=== PATIENT | female | born 1990 | race Caucasian/White ===

== ENCOUNTER 2020-08-15 01:48 | Emergency (ER) | payer MEDICAID ==
[~2020-08-15] VITALS: Ht 165.1 cm; Wt 75.9 kg
--- NOTE | 2020-08-15 02:00 | NUR ---
at bedside to do mse.
--- NOTE | 2020-08-15 02:10 | NUR ---
pt. arrived from home w/ step son. complaint of headache 09/26 starting yesterday AM. Pt 3 weeks post and is breast feeding so did not want to take any otc medications for head pain. Pt. a&ox4. Pt. denies dizziness, vision changes, and has steady gait. Vss.
[2020-08-15] MEDS ORDERED: IV NORMAL SALINE 1000 ML BAG IV ONE (02:15)
[2020-08-15] MEDS ORDERED: METOCLOPRAMIDE HCL 10 MG/2 ML VIAL IV ONE (02:15)
[2020-08-15] MEDS ORDERED: ACETAMINOPHEN 325 MG TABLET PO ONE (02:15)
[2020-08-15 02:24] LABS: *BILIRUBIN,URIN NEGATIVE (NEGATIVE); *CLARITY,URINE CLEAR (CLEAR); *COLOR,URINE YELLOW (YELLOW); *KETONES,URINE NEGATIVE (NEGATIVE); *UROBILINOGEN,URINE 0.2 E.U./dl (NORMAL); LEUKOCYTE ESTERASE ,URINE TRACE (NEGATIVE); NITRITE, URINE NEGATIVE (NEGATIVE); PH,URINE 6.5 (5.0-8.0); UGLUCOSE NEGATIVE (NEGATIVE)
[2020-08-15 02:26] LABS: CREATININE 0.8 mg/dL (0.6-1.3); POTASSIUM 4.1 mmol/L (3.5-5.1)
[2020-08-15] MEDS ORDERED: ACETAMINOPHEN 325 MG TABLET ONE (02:28)
[2020-08-15] MEDS ORDERED: METOCLOPRAMIDE HCL 10 MG/2 ML VIAL ONE (02:28)
[2020-08-15 02:31] LABS: BILIRUBIN,TOTAL 0.1 mg/dL (0.2-1.0)
[2020-08-15 02:34] LABS: *BLOOD, URINE TRACE (NEGATIVE)
[2020-08-15 02:35] LABS: BASOPHILS % (AUTO) 0.8 % (0.0-2.0); EOSINOPHILS # (AUTO) 0.2 K/uL (0.0-0.7); EOSINOPHILS % (AUTO) 2.5 % (0.0-7.0); HEMATOCRIT 37.6 % (31.2-41.9); HEMOGLOBIN 12.3 g/dL (10.9-14.3); LYMPHOCYTES # (AUTO) 1.5 K/uL (20.0-40.0); LYMPHOCYTES % (AUTO) 24.3 % (20.5-51.5); MEAN CORPUSCULAR HGB CONC 33 g/dL (32.3-35.6); MEAN CORPUSCULAR VOLUME 88.8 fL (75.5-95.3); MONOCYTES # (AUTO) 0.6 K/uL (2.0-10.0); MONOCYTES % (AUTO) 9.5 % (0.0-11.0); NEUTROPHILS # (AUTO) 3.8 K/uL (1.8-8.9); NEUTROPHILS % (AUTO) 62.9 % (38.5-71.5); PLATELET COUNT (AUTO) 225 K/uL (179-408); RED BLOOD CELL COUNT(AUTO) 4.24 MIL/uL (3.63-4.92); WHITE BLOOD COUNT (AUTO) 6.1 K/uL (3.8-11.8)
[2020-08-15 02:43] LABS: BACTERIA,URINE FEW /HPF (NONE SEEN); RBC,URINE 0-3 /HPF (0-3); SQUAMOUS EPITHELIAL CELL,UR MODERATE /HPF (NONE SEEN)
[2020-08-15] MEDS ORDERED: IBUP-1955 PO (02:46)
--- NOTE | 2020-08-15 03:18 | NUR ---
Patient discharged to home in stable condition. Written and verbal after care instructions given. Patient verbalizes understanding of instructions. Stressed follow up or return to ER for worsening s/s. Vss. All belongings with pt. Pt. a&ox4, with steady gait.
--- NOTE | 2020-08-15 03:18 | NUR ---
IV removed. Catheter intact and site benign. Pressure and 4x4 gauze applied to site. No bleeding noted.
[2020-08-15 04:11] VITALS: BP 115/68
== END 2020-08-15 03:18 | disposition home or self-care (01) ==
LOC: ER 01:50
DX: O99.893 Other specified diseases and conditions complicating puerperium (principal); R51.9 Headache, unspecified; R82.998 Other abnormal findings in urine
CPT/HCPCS: 36415; 80053; 81001; 85025; 87086; 96361; 96374; 99284; J2765; A4663; J7030